=== PATIENT | male | born 1935 | race Two or more races ===

== ENCOUNTER 2024-01-05 21:03 | Emergency (ER) | payer MEDICARE, OTHER ==
[~2024-01-05] VITALS: Ht 172.7 cm; Wt 93.0 kg
[2024-01-05 21:08] VITALS: O2SAT 93
[2024-01-05] MEDS: ACETAMINOPHEN 325MG TABLET PO ONE (21:30)
[2024-01-05] MEDS: SODIUM CHLORIDE 0.9% 1,000 ML IV ONE (22:00)
[2024-01-05] MEDS ORDERED: TRAM50TA3 MT (23:17)
[2024-01-05] MEDS ORDERED: ACET-2708 MT (23:17)
[2024-01-05 23:30] VITALS: BP 125/85; PULSE 80; RESP 20; TEMP 36.44736; O2SAT 96
== END 2024-01-06 00:07 | disposition home or self-care (01) ==
LOC: ER 21:03
DX: S80.212A Abrasion, left knee, initial encounter (principal); S80.211A Abrasion, right knee, initial encounter; M25.561 Pain in right knee; M25.562 Pain in left knee; E78.00 Pure hypercholesterolemia, unspecified; I10 Essential (primary) hypertension; F03.90 Unspecified dementia, unspecified severity, without behavioral disturbance, psychotic disturbance, mood disturbance, and anxiety; E11.9 Type 2 diabetes mellitus without complications; Z95.0 Presence of cardiac pacemaker; W18.39XA Other fall on same level, initial encounter; Y93.89 Activity, other specified; Y92.89 Other specified places as the place of occurrence of the external cause; Y99.8 Other external cause status
CPT/HCPCS: 99284; 73522; 73562; J7030